=== PATIENT | female | born 1960 | race Caucasian/White ===

== ENCOUNTER 2018-11-11 20:12 | Emergency (ER) | payer BC, OTHER ==
[2018-11-11] MEDS ORDERED: KETOROLAC 15 MG INJ IV (21:06)
[2018-11-11] MEDS: KETOROLAC 15 MG INJ IV (21:18)
[2018-11-11] MEDS: BELLADONNA/PHENOBARBITAL TAB PO (21:18)
[2018-11-11] MEDS: SOD CHLORIDE 0.9% 1,000 ML IV (21:18)
[2018-11-11] MEDS: LIDOCAINE/MYLANTA 40 ML BTL PO (21:18)
[2018-11-11] MEDS: ONDANSETRON 4 MG INJ IV (21:18)
[2018-11-11] MEDS ORDERED: NITROGLYCERIN (SL) 0.4 MG TAB SL (21:30)
[2018-11-11] MEDS ORDERED: ASPIRIN 81 MG TAB PO (21:30)
[2018-11-11] MEDS ORDERED: ENALAPRILAT 1.25 MG INJ IV (21:30)
[2018-11-11 22:05] LABS: ADD MAN DIFF? NO
[2018-11-11 22:09] LABS: BASOPHILS % 0.3 % (0.0-2.0); EOSINOPHILS % 0.7 % (0.0-7.0); HEMATOCRIT 38.7 % (37.0-47.0); HEMOGLOBIN 13.3 g/dl (12.0-16.0); LYMPHOCYTES # 2.6 10^3/ul (0.8-2.9); LYMPHOCYTES % 42.6 % (15.0-51.0); MEAN CORPUSCULAR HEMOGLOBIN 34.2 pg (29.0-33.0); MEAN CORPUSCULAR HGB CONC 34.4 g/dl (32.0-37.0); MEAN CORPUSCULAR VOLUME 99.5 fl (82.0-101.0); MEAN PLATELET VOLUME 10.5 fl (7.4-10.4); MONOCYTE # 0.6 10^3/ul (0.3-0.9); MONOCYTES % 10.4 % (0.0-11.0); NEUTROPHIL # 2.8 10^3/ul (1.6-7.5); NEUTROPHILS % 45.8 % (39.0-77.0); PLATELET COUNT 170 10^3/UL (140-415); RED BLOOD COUNT 3.89 10^6/ul (4.20-5.40)
[2018-11-11 22:09] LABS: WHITE BLOOD COUNT 6.1 10^3/ul (4.8-10.8)
[2018-11-11 22:12] LABS: INR 0.96; PROTIME 12.9 Sec (11.9-14.9)
[2018-11-11 22:13] LABS: PARTIAL THROMBOPLASTIN TIME 27.3 Sec (23.0-35.0)
[2018-11-11 22:14] LABS: ALANINE AMINOTRANSFERASE 29 IU/L (13-69); ALBUMIN 4.3 g/dl (3.3-4.9); ALBUMIN/GLOBULIN RATIO 1.13; ALKALINE PHOSPHATASE 103 IU/L (42-121); ANION GAP 9 (5-13); ASPARTATE AMINO TRANSFERASE 55 IU/L (15-46); BILIRUBIN,INDIRECT 0.6 mg/dl (0-1.1); BILIRUBIN,TOTAL 0.6 mg/dl (0.2-1.3); BLOOD UREA NITROGEN 15 mg/dl (7-20); CALCIUM 9.6 mg/dl (8.4-10.2); CARBON DIOXIDE 25 mmol/L (21-31); CHLORIDE 105 mmol/L (97-110); CREATININE 0.71 mg/dl (0.44-1.00); Estimated GFR > 60 mL/min (>60); GLUCOSE 136 mg/dl (70-220); LIPASE 76 U/L (23-300); POTASSIUM 3.9 mmol/L (3.5-5.1); SODIUM 139 mmol/L (135-144); TOTAL PROTEIN 8.1 g/dl (6.1-8.1)
[2018-11-11 22:26] LABS: TROPONIN-I < 0.012 ng/ml (0.000-0.120)
[2018-11-11] MEDS: OXYCODONE/ACETAMINOPHEN (5/325) TAB PO (23:20)
== END 2018-11-11 23:29 | disposition home or self-care (01) ==
LOC: E/R 20:12
DX: R10.13 Epigastric pain (principal)
CPT/HCPCS: 36415; 71045; 74176; 80053; 83690; 84484; 85025; 85610; 85730; 93005; 96374; 96375; 99285-25